=== PATIENT | female | born 1965 | race African-American/Black ===

== ENCOUNTER 2020-02-14 08:51 | Emergency (ER) | payer OTHER ==
[~2020-02-14] VITALS: Ht 154.9 cm; Wt 82.1 kg
[2020-02-14] MEDS ORDERED: HORIZANT300 MG (09:01)
[2020-02-14] MEDS ORDERED: FORTAMET500 MG (09:08)
[2020-02-14] MEDS ORDERED: METFORMIN HCL500 M4 PO (11:42)
[2020-02-14] MEDS ORDERED: KETO10TA2 PO (11:42)
[2020-02-14] MEDS ORDERED: NORFLEX100MG PO (11:42)
== END 2020-02-14 11:50 | disposition home or self-care (01) ==
LOC: ER 08:51
DX: M54.5 Low back pain (principal)

== ENCOUNTER 2020-07-10 17:34 | Emergency (ER) | payer OTHER ==
[~2020-07-10] VITALS: Ht 154.9 cm; Wt 72.6 kg
[~2020-07-10 17:34] MED LIST: FORTAMET500 MG; HORIZANT300 MG; KETO10TA2 PO; METFORMIN HCL500 M4 PO; NORFLEX100MG PO
== END 2020-07-10 21:35 | disposition home or self-care (01) ==
LOC: ER 17:34
DX: N20.0 Calculus of kidney (principal); R10.32 Left lower quadrant pain